=== PATIENT | female | born 1990 | race African-American/Black ===

== ENCOUNTER 2020-08-20 18:52 | Emergency (ER) | payer SELFPAY ==
[~2020-08-20] VITALS: Ht 165.1 cm; Wt 86.2 kg
--- NOTE | 2020-08-20 18:57 | NUR ---
PATIENT WHEELCHAIR ASSISTED TO BED 6.
--- NOTE | 2020-08-20 19:05 | NUR ---
30 YEAR OLD FEMALE COMPLAINS OF CHEST PAIN SINCE YESTERDAY. PT STATES CHEST PAIN RADIATES TO NECK AND IS ACCOMPANIED BY SOB. PT COMPLAINS OF BODYACHES. PT DENIES NAUSEA, VOMITTING, DIARRHEA. PT AOX4, BREATHING EVEN AND LABORED, SKIN WARM AND DRY. BED IN LOWEST POSITION, LOCKED, BED RAIL UPX1. PT PLACED ON MONITOR, ERMD MADE AWARE OF PT STATUS. PMH - SICKLE CELL ANEMIA, DVT, PE, ACUTE CHEST SYNDROME, VASCULAR NECROSIS ALLERGIES - PCN, KETAMINE
[2020-08-20] MEDS ORDERED: NACL 0.9% 1,000 ML IV ONE ×2 (19:10→19:30)
--- NOTE | 2020-08-20 19:15 | NUR ---
Report received from ZORAIDA Fernandes for continuation of care.
--- NOTE | 2020-08-20 19:20 | NUR ---
X-Ray at bedside.
--- NOTE | 2020-08-20 19:26 | NUR ---
Said examining patient.
[2020-08-20] MEDS ORDERED: MORPHINE SULFATE 4 MG/ML SYR IVP ONE (19:30)
[2020-08-20] MEDS ORDERED: ONDANSETRON 4 MG/2 ML VIAL IVP ONE (19:30)
--- NOTE | 2020-08-20 19:45 | NUR ---
Patient laying in bed, locked in lowest position, HOB elevated, x2 side rails up for patient safety. Patient reports she's "having a sickle-cell flare up," body pain 10/. Breathing even and unlabored, chest expansion symmetrical. Patient is declining nursing interventions at this time and wants to speak to Doctor first. ERMD made aware. Will continue to monitor.
--- NOTE | 2020-08-20 20:00 | NUR ---
PT REFUSED EKG
[2020-08-20 20:23] VITALS: BP 146/89
--- NOTE | 2020-08-20 20:23 | NUR ---
PATIENT ELOPED FROM FACILITY. DISCHARGE INSTRUCTIONS NOT GIVEN TO PATIENT. NOTIFIED.
== END 2020-08-20 20:24 | disposition left against medical advice (07) ==
LOC: MED 18:52
DX: M79.10 Myalgia, unspecified site (principal); D57.1 Sickle-cell disease without crisis; Z88.0 Allergy status to penicillin; Z88.6 Allergy status to analgesic agent
CPT/HCPCS: 71045; 99283; J2270; J2405